=== PATIENT | male | born 1955 | race Caucasian/White ===

== ENCOUNTER 2019-09-03 14:04 | Inpatient (IN) ==
[2019-09-03] MEDS ORDERED: LASIX IV ONE (15:20)
--- NOTE | 2019-09-03 15:37 | EKG Report ---
Test Performed on : 09/03/2019 3:23:42 PM Test Reason : CHF/ SOB Blood Pressure : / mmHG Vent. Rate : 083 BPM Atrial Rate : 083 BPM P-R Int : 162 ms QRS Dur : 172 ms QT Int : 428 ms P-R-T Axes : 009 233 067 degrees QTc Int : 502 ms Normal sinus rhythm. Right bundle branch block Abnormal ECG When compared with ECG of 11-FEB-2018 07:01, Nonspecific T wave abnormality no longer evident in Inferior leads T wave inversion less evident in Anterolateral leads Confirmed by Javan DOCKERY, Froilan ([id number]) on 09/03/2019 5:42:32 PM
[2019-09-03 17:17] LABS: CK INDEX 8.9 (0.0-2.5); CK-MB 19.9 ng/mL (0.0-5.0)
[2019-09-03] MEDS: LOVENOX SUBQ SCH (18:54)
[2019-09-03] MEDS: LIPITOR PO SCH (20:03)
[2019-09-03] MEDS: COREG PO SCH (20:03)
[2019-09-03] MEDS: ENTRESTO 49 MG-51 MG TABLET PO SCH (20:03)
[2019-09-03] MEDS: LEVEMIR SUBQ SCH (20:09)
[2019-09-03] MEDS: HUMALOG SUBQ SCH (21:27)
--- NOTE | 2019-09-03 21:50 | CARDIOLOGY CONSULTATION ---
DATE: 09/03/2019 CHIEF COMPLAINT: On presentation, shortness of breath. HISTORY OF PRESENT ILLNESS: Mr. Arroyo is a 63-year-old white male with history of coronary disease, who presented for evaluation of shortness of breath to his primary care physician's office. He reports that this has been going on for 3-4 days, along with lower extremity edema. He has been compliant with his medications. He has had some issues with food-related abdominal burning and he found that the only thing that he could really tolerate was Molly sausages and crackers. He has noted the swelling and fluid gain in that time period. He has had no chest pain. He last had a PCI in 2018. At that time he had chest pain associated with it. Again, he reports compliance with medications. PAST MEDICAL HISTORY: 1. Significant for coronary artery disease, with coronary bypass grafting. His last catheterization was in 01/2018. At that time he had an occluded left main. LAD filled via LILI with diffuse irregularities. There was 95% in-stent stenosis at the lesion of the anastomosis of a vein graft to the diagonal. Circumflex had moderate-size mild disease. The obtuse marginal filled via vein graft. Right coronary was occluded with stenting noted. Saphenous vein graft to the marginal had a 95% lesion that was stented. Saphenous vein graft to the diagonal had a 95% diffuse in-stent lesion that was a stented. LILI to the LAD was patent. 2. Congestive heart failure. His most recent ejection fraction was in 2016 by echocardiogram, demonstrating EF of 40% to 45%. 3. Hypertension. 4. Hyperlipidemia. 5. Diabetes. 6. Peripheral neuropathy. 7. Reflux disease. 8. Sleep apnea. SOCIAL HISTORY: He is . is present in the room. He does not smoke. FAMILY HISTORY: Significant for hypertension. REVIEW OF SYSTEMS: A 10-system review of systems is negative except for those mentioned in HPI. PHYSICAL EXAMINATION: Afebrile. Heart rate 81, blood pressure 126/68. He weighs 248 pounds. Generally he is in no acute distress.HEENT: Oropharynx is moist. Normal dentition. Eye examination: [place] conjunctivae. White sclerae. Neck examination shows no obvious thyromegaly or thyroid tenderness. Cardiovascular: He is in a regular rate and rhythm. He has no murmurs. He has no S3. He has trace to 1+ bilateral lower extremity edema. His chest exam is clear bilaterally. He has no increased work of breathing. His abdomen is soft, nontender, nondistended. He has no obvious organomegaly. Skin exam is warm and dry throughout, without any rashes. Neurologically, he is moving all extremities well. He has no lateralizing deficits. DIAGNOSTIC DATA: His EKG demonstrates sinus rhythm. He has a right bundle branch block present. His chest x-ray suggests cardiomegaly; pacemaker identified. LABORATORY DATA: White count 9.4, hematocrit 45, platelet count 297,000. Sodium 141, potassium 4.6, BUN 29, creatinine is 1.2. His proBNP is 2563. His troponin 0.218. CK is 223. ASSESSMENT: Mr. Arroyo is a 63-year-old gentleman who presents with shortness of breath and symptoms suggestive of heart failure, with recent dietary sodium overload. PLAN: At this point we will continue with diuresis. We will place him on Lasix 40 mg IV daily. He received 1 dose here today, with good result. We will continue him on his aspirin, statin, carvedilol, Entresto and Imdur. If testing is in agreement with his likely heart failure exacerbation with mild troponin elevation resultant to that, we will likely proceed with perfusion imaging on Sunday. cc: MD Zaheer Lara MD
--- NOTE | 2019-09-03 22:10 | HISTORY AND PHYSICAL ---
CHIEF COMPLAINT: Shortness of breath and leg swelling. HISTORY OF PRESENT ILLNESS: Mr. Arroyo is a 63-year-old gentleman, complaining of bilateral leg swelling and some shortness of breath going on for 2 days. The patient was sick with sinus infection a few days ago. I started him on doxycycline. The patient was doing better, but again he got sicker. Complaining of bilateral leg swelling. The patient gained some weight, increasing shortness of breath. The patient was getting dizzy. At times, he described dizziness as a vertigo. The patient came for evaluation. The patient did have bibasilar few rales. The patient does have significant cardiac history including ischemic cardiomyopathy, multiple TX, CABG requiring stent placement after that. The patient has an implantable defibrillator. The patient is poorly compliant to treatment, though lately he was trying better. I did some blood work. His proBNP was elevated. Troponin was also minimally elevated. Discussed this result with the patient and . I offered them either to go to [place] to his manager willow versus admit him to [facility] for observation and further treatment. They elected to stay at [facility], and I decided to admit him to [facility]. The patient was feeling weak, getting short of breath with minimal exertion. He denied any orthopnea or PND. No typical chest pain or palpitation. No high-grade fever or chills. Mild cough, no expectoration. The patient does have uncontrolled diabetes, but lately blood sugar was doing better. No dysuria or hematuria. At times, polyuria, polydipsia. No runny nose, stuffy nose, sinus drainage. Dull headache. Denied abdominal pain. No diarrhea, or blood or mucus in the stool. The patient does have mild urinary hesitancy. Unquantified weight gain. No major depression. The patient does have sleep apnea. He was using his CPAP regularly. ALLERGIES: Narcotic analgesics. MEDICATIONS: His current medications include Lipitor, aspirin, Coreg, Plavix, Lasix 40 mg daily, Levemir 50 units b.i.d. The patient claimed he was taking NovoLog 50 units b.i.d., which I doubt. He was supposed to take 30 units 3 times a day. Aldactone, Entresto. PAST MEDICAL HISTORY: Significant for coronary artery disease, TX, the patient had CABG done and stent placement multiple times, ischemic cardiomyopathy, the patient had defibrillator placed, gastritis and reflux disease, history suggestive of TIA, diabetes mellitus, situational depression, the patient was on Cymbalta but not taking it lately, gastritis and reflux disease, morbid obesity, sleep apnea, moderate mitral regurgitation, peripheral neuropathy, arthritis. PERSONAL HISTORY: , lives with the . Quit smoking a few years ago. Denied alcohol or substance abuse. FAMILY HISTORY: Significant for hypertension, coronary artery disease, lung cancer. REVIEW OF SYSTEMS: As per HPI. PHYSICAL EXAMINATION: GENERAL: Middle-aged white gentleman lying in the bed, in no acute distress. VITAL SIGNS: Blood pressure 129/59, pulse 84, respirations 16, temperature 98.2 degrees, O2 saturation was 96%. SKIN: Normal turgor. No rash or petechiae. HEENT: Head atraumatic, normocephalic. [place] conjunctivae. Anicteric sclerae. Extraocular muscle movement normal. Fundus cannot be penetrated. Good oral hygiene. No tonsillopharyngeal congestion or exudate. Ears and nose benign. NECK: Supple. No JVD, thyromegaly or lymphadenopathy. CHEST: Bibasilar crepitation. Bilateral few rales. No significant wheezing. No movement of accessory muscles of respiration. CARDIOVASCULAR: S1 and S2 heard; 2/6 systolic murmur at the apex. No gallop or thrill. ABDOMEN: Soft, globular. Bowel sounds present. No organomegaly or mass. EXTREMITIES: No cyanosis or clubbing. Pitting edema 1 to 2+. No acute DVT. CENTRAL NERVOUS SYSTEM: Alert, awake, answering questions fairly well. LABORATORY DATA: The patient's laboratory data done as an outpatient revealed hemoglobin 14.3, hematocrit 45.8, WBC count 9.4, platelet count 297,000. ProBNP was 2563. His cardiac isoenzymes. Initial troponin was 0.193. BUN 29, creatinine 1.2. DIAGNOSTIC DATA: Chest x-ray result also reviewed. I reviewed his labs and chest x-ray results with the patient and . The patient was in congestive heart failure. I decided to admit the patient for further care. ASSESSMENT: 1. Congestive heart failure. 2. Patient ruled in for myocardial infarction, which could be due to uncompensated heart failure. 3. The patient does have uncontrolled diabetes mellitus. 4. Hypertension. 5. Hyperlipidemia. 6. Vertigo. 7. Ischemic cardiomyopathy. 8. Mitral regurgitation. PLAN: Admit the patient. Cardiology consult. Diuresis echocardiogram. Overall plan discussed at length with the patient and his . They are in agreement. cc: Zaheer Leigh MD
[2019-09-04 03:12] LABS: BASO# 0.06 X1000 (0.0-0.2); BASO% 0.9 % (0.0-0.8); EOS# 0.11 X1000 (0.0-0.7); EOS% 1.6 % (0.0-10.0); HEMATOCRIT 40.9 % (42.0-52.0); HEMOGLOBIN 12.8 g/dL (14.0-18.0); IMM GRAN# 0.03 X1000 (0.0-0.04); IMM GRAN% 0.4 % (0.0-0.5); LYMPH# 1.26 X1000 (1.2-3.4); LYMPH% 18.5 % (20.5-51.1); MCH 25.5 PG (27-31); MCHC 31.3 g/dL (33-37); MCV 81.6 FL (81-99); MONO# 0.73 X1000 (0.11-0.59); MONO% 10.7 % (1.7-9.3); NEUT# 4.61 X1000 (1.4-6.5); NEUT% 67.9 % (42.2-75.2); PLT 240 X1000 (130-400); RBC 5.01 XMIL (4.7-6.1); RDW 14.5 % (11.5-14.5)
[2019-09-04 03:45] LABS: ALB/GLOB RATIO 1.9; ALBUMIN 3.8 g/dL (3.5-5.0); CALCIUM 9.3 mg/dL (8.8-10.2); CREATININE 1.3 mg/dL (0.7-1.2); MAGNESIUM 2.2 mg/dL (1.5-2.7); POTASSIUM 4.4 mmol/L (3.5-5.1); TOTAL BILIRUBIN 0.58 mg/dL (0.20-1.00); TOTAL PROTEIN 5.8 g/dL (6.3-8.3)
[2019-09-04 06:01] LABS: HEMOGLOBIN A1C 8.2 % (4.8-6.0)
[2019-09-04] MEDS: HUMALOG SUBQ SCH ×4 (06:11→21:19)
[2019-09-04] MEDS: LOVENOX SUBQ SCH ×2 (06:11→17:06)
[2019-09-04] MEDS ORDERED: SODIUM CHLORIDE 0.9% INJ SCH (07:15)
--- NOTE | 2019-09-04 07:15 | EKG Report ---
Test Performed on : 09/04/2019 06:41:26 AM Test Reason : CHF/SOB Blood Pressure : / mmHG Vent. Rate : 082 BPM Atrial Rate : 082 BPM P-R Int : 162 ms QRS Dur : 166 ms QT Int : 416 ms P-R-T Axes : 016 269 170 degrees QTc Int : 486 ms Normal sinus rhythm. Right bundle branch block T wave abnormality, consider inferolateral ischemia Abnormal ECG When compared with ECG of 03-SEP-2019 15:23, T wave inversion now evident in Inferior leads T wave inversion more evident in Anterolateral leads Confirmed by Javan DOCKERY, Froilan ([id number]) on 09/04/2019 8:20:35 AM
--- NOTE | 2019-09-04 08:29 | Diag Imaging Result Doc PS360 ---
EXAM: CT HEAD W/O CONTRAST INDICATION: headache TECHNIQUE: This exam was performed using automated exposure control, adjustment of mA or kV according to patient size, and/or use of iterative reconstruction technique. COMPARISON: None. FINDINGS: There is no definite acute infarct given the limited sensitivity of CT versus MRI. There is no discrete intracranial mass, mass effect, or intracranial hemorrhage. The surrounding soft tissues and bony structures are essentially unremarkable. IMPRESSION: No evidence of acute intracranial pathology. Electronically signed by Tavon Slaughter 09/04/2019 8:27 AM
--- NOTE | 2019-09-04 08:41 | Diag Imaging Result Doc PS360 ---
EXAM: CHEST-2 VIEWS HISTORY: CHF/ SOB TECHNIQUE: Two views COMPARISON: 09/03/2019 FINDINGS: The lungs are well expanded. The heart remains enlarged. There are sternal wires and a left pacemaker. No pleural effusions. Mild vascular distention. IMPRESSION: Cardiomegaly with mild pulmonary edema Electronically signed by Colton Church 09/04/2019 8:38 AM
[2019-09-04] MEDS: KLOR-CON PO SCH (09:05)
[2019-09-04] MEDS: COREG PO SCH ×2 (09:05→21:19)
[2019-09-04] MEDS: ALDACTONE PO SCH (09:06)
[2019-09-04] MEDS: ASPIRIN PO SCH (09:06)
[2019-09-04] MEDS: LASIX IV SCH (09:06)
[2019-09-04] MEDS: ANTIVERT PO SCH ×3 (09:06→17:06)
[2019-09-04] MEDS: ENTRESTO 49 MG-51 MG TABLET PO SCH ×2 (09:06→21:19)
[2019-09-04] MEDS: IMDUR PO SCH (09:06)
[2019-09-04] MEDS: PLAVIX PO SCH (09:08)
[2019-09-04] MEDS: LEVEMIR SUBQ SCH ×2 (09:11→21:19)
--- NOTE | 2019-09-04 09:14 | PROGRESS NOTE ---
DATE: 09/04/2019 SUBJECTIVE: Mr. Arroyo is doing fair. No typical chest pains or palpitations. Leg swelling is less. The patient is diuresing well with IV Lasix. No chest pain. Complaining of vertigo, more benign positional, dull headache. No typical chest pain. No high-grade fever or chills OBJECTIVE: Vital Signs: Blood pressure was low normal. Neck: Supple. No JVD. Lungs: Bibasilar crepitations. Rales are less. CVS: S1 and S2 heard, 2/6 systolic murmur at the apex. Abdomen: Soft, globular. Bowel sounds present. PROPAGATOR LABORER: Alert, awake, able to move all 4 limbs. Extremities: Leg swelling improved. ASSESSMENT AND DISCUSSION: 1. Patient admitted with uncompensated systolic heart failure. The patient does have a history of ischemic cardiomyopathy. Appreciate Dr. James Mcgrath's help managing this patient. The patient is scheduled to have an echocardiogram today. 2. Coronary artery disease. The patient had elevated troponin most likely due to uncompensated heart failure. Troponin done today 0.296. 3. Uncontrolled diabetes mellitus. 4. Benign positional vertigo. I am going to get CT scan of the head to make sure no other intracranial pathology or severe sinus infection. 5. Diabetes mellitus. Hemoglobin A1c was 8.2. Advised patient not to take Humalog 50 units twice a day. Currently, he is on moderate dose sliding scale insulin along with 50 units Levemir twice a day. 6. Hyperlipidemia on Lipitor. Discussed fall precautions. 7. Sleep apnea on CPAP. LABORATORY DATA: Done today. WBC count 6.8, hemoglobin 12.8, hematocrit 40.9, platelet count 240,000. BUN 29, creatinine 1.3. Accu-Chek results reviewed. ProBNP was 2604. PLAN: Overall plan discussed at length with the patient. cc: Zaheer Leigh MD
[2019-09-04] MEDS: PROTONIX IV SCH (09:15)
[2019-09-04] MEDS ORDERED: INSULIN PEN NEEDLES ONE (10:41)
--- NOTE | 2019-09-04 16:17 | ECHO REPORT ---
ORDER DATE: 09/04/2019 INTERPRETING PHYSICIAN: Dr. López Harris ECHOCARDIOGRAPHIC MEASUREMENTS: 1. Interventricular septum: 1.3 cm. 2. Left ventricular posterior wall: 1.1 cm. 3. Diastolic diameter: 6.0 cm. 4. Left atrium: 4.4 cm. 5. Aorta: 3.2 cm. SUMMARY OF THE 2-DIMENSIONAL IMAGIN. Technically suboptimal study. 2. Poor acoustic window. 3. Aortic valve leaflets were trileaflet. 4. Pulmonic valve was normal. 5. Mitral valve was normal. 6. Tricuspid valve was normal. 7. Optison was used to assess left ventricular systolic function. 8. Left ventricle is dilated with severely reduced systolic function. 9. Estimated ejection fraction of 35%. 10. Pacing leads were noted in the right chamber. 11. There is mild mitral regurgitation. 12. Mild tricuspid regurgitation. 13. Peak velocity across the tricuspid valve was 2.2 meters per second. 14. There is no aortic stenosis or regurgitation. 15. Anterior echo-free space suggestive of pericardial fat pad was noted. 16. There is no pericardial effusion or obvious intracardiac mass or thrombus seen. cc: MD James Beebe MD Bharat K. Vakharia, MD
[2019-09-04] MEDS: LIPITOR PO SCH (21:19)
--- NOTE | 2019-09-04 23:08 | CARDIOLOGY PROGRESS NOTE ---
DATE: 09/04/2019 SUBJECTIVE: Mr. Arroyo reports his breathing is improved. He is not having any orthopnea and his lower extremity edema has improved. PHYSICAL EXAMINATION: He is afebrile. His heart rate is 75, blood pressure 112/58. His I's and O's during this hospitalization have been documented negative around 1500 mL.General: He is in no acute distress. Cardiovascular: He sounds to be in a regular rate and rhythm. He has no obvious murmurs. He has no S3. He has trace bilateral lower extremity edema, and warm and well- perfused extremities. Chest: Sounds relatively clear. He has no increased work of breathing. His JVP appears to be less than 8 cm. PERTINENT DATA: His white count is 6.8, hematocrit is 40, platelet count is 240,000. Sodium 139, potassium is 4.4, BUN 29, creatinine is 1.3. His proBNP is 2604. His initial troponin was 0.218, subsequent 0.194, and final was 0.296. Echocardiogram today suggested an ejection fraction of 35%. Severe dilatation. Device leads noted. Mild MR, mild TR. ASSESSMENT: Mr. Arroyo is a 63-year-old gentleman who presented with what seems like a congestive heart failure exacerbation secondary to dietary sodium indiscretion. PLAN: We will proceed with perfusion imaging in the morning. We will recheck laboratories. If perfusion imaging is unremarkable, then he can likely be discharged tomorrow. cc: MD Zaheer Lara MD
[2019-09-05] MEDS: LOVENOX SUBQ SCH (05:55)
[2019-09-05] MEDS: HUMALOG SUBQ SCH ×3 (06:01→18:07)
[2019-09-05] MEDS ORDERED: ATIVAN IV ONE (09:16)
[2019-09-05] MEDS ORDERED: VERSED IV ONE (09:17)
[2019-09-05] MEDS ORDERED: LEXISCAN ONE (10:20)
--- NOTE | 2019-09-05 11:23 | PROGRESS NOTE ---
DATE: 09/05/2019 SUBJECTIVE: Ms. Arroyo is doing better. No typical chest pain. Shortness of breath is improving. No nausea or vomiting. The patient is ambulating better. No diarrhea, blood or mucus in the stool. Vertigo is better. CT scan of the head results reviewed and discussed with the patient. OBJECTIVE: Vital Signs: His vital signs noted. Neck: Neck is supple. No JVD. Lungs: A few basilar crepitations. CVS: S1 and S2 heard. Abdomen: Soft, globular. Bowel sounds present. Extremities: Leg swelling improved. VMWARE ARCHITECT: Alert, awake. Able to move all 4 limbs. CONSIDERATION: Uncompensated. 1. Both systolic and diastolic heart failure. 2. Uncontrolled diabetes mellitus. 3. Hypertension. 4. Vertigo. The patient is going to have Lexiscan today if clinical condition permits, and depending on Lexiscan result, will plan discharging patient home today. I appreciate Dr. Mcgrath's help managing the patient. cc: Zaheer Leigh MD
[2019-09-05] MEDS ORDERED: TYLENOL PO ONE (12:51)
[2019-09-05] MEDS: ASPIRIN PO SCH (13:02)
[2019-09-05] MEDS: COREG PO SCH (13:02)
[2019-09-05] MEDS: ANTIVERT PO SCH ×3 (13:03→18:07)
[2019-09-05] MEDS: KLOR-CON PO SCH (13:03)
[2019-09-05] MEDS: ALDACTONE PO SCH (13:03)
[2019-09-05] MEDS: PROTONIX IV SCH (13:04)
[2019-09-05] MEDS: PLAVIX PO SCH (13:07)
[2019-09-05] MEDS: ENTRESTO 49 MG-51 MG TABLET PO SCH (13:08)
[2019-09-05] MEDS: IMDUR PO SCH (13:08)
[2019-09-05] MEDS: LEVEMIR SUBQ SCH (13:15)
[2019-09-05] MEDS: LASIX IV SCH (13:15)
--- NOTE | 2019-09-05 13:57 | Diag Imaging Result Document ---
PROCEDURE NAME: MYOCARDIAL PERF SCAN, STR/REST - 09/05/2019 INDICATIONS: Congestive heart failure, history of coronary artery disease. PROCEDURE PERFORMED: Lexiscan stress. One-day stress-rest myocardial perfusion imaging (rest dose of 14.9 mCi of technetium, stress dose of 44.8 mCi of technetium). LEXISCAN STRESS RESULTS: 1. Baseline EKG shows sinus rhythm with a right bundle-branch block. PVC is identified. 2. Lexiscan stress did not demonstrate any clear evidence of ischemic related EKG changes or significant arrhythmias. Occasional PVCs were identified. PERFUSION IMAGING RESULTS: 1. No evidence of abnormal extracardiac uptake. 2. TID ratio is 1.03. 3. Perfusion imaging demonstrates a large size severe intensity defect. This defect is quite extensive and involves the entirety of the anterior wall, large portions of the anterior lateral wall as well as extensive portions of the basal and mid inferior wall. There does appear to be intact perfusion in the mid and distal anterior septum, as well as the more distal inferior wall. These defects are largely fixed with only minimal sherry-infarct ischemia. The sum stress score is 28, and sum rest score is 22. 4. Reduced ejection fraction calculated at 37%. There is a dilated left ventricle with an end- diastolic dimension of 246, end-systolic volume of 155. Severe global hypokinesis. cc: James Mcgrath MD
[2019-09-05] MEDS ORDERED: MOBIC PO ONE (14:30)
[2019-09-05 16:06] VITALS: BP 146/84
--- NOTE | 2019-09-06 08:57 | CARDIOLOGY PROGRESS NOTE ---
DATE: 09/05/2019 SUBJECTIVE: Mr. Arroyo reports he is doing well. He underwent a stress testing today. OBJECTIVE: Vital Signs: Afebrile. Heart rate 96, blood pressure 146/84. I's and O's have been negative around 1 L during the course of the hospitalization. General: He is in no acute distress. Cardiovascular: He sounds to be in a regular rate and rhythm. He has no murmurs. He has no S3. He has no lower extremity edema. Chest: Exam sounds clear bilaterally. He has no increased work of breathing. Abdomen: Soft, nontender. PERTINENT DATA: He has no new chemistry data today. His nuclear scan shows large predominantly fixed defects in multiple territories involving the mid and distal anterior septum, as well as the inferior wall. There is minimal sherry-infarct ischemia. Sum stress score 28; sum rest score 22; EF 37% with a dilated LV. ASSESSMENT: Mr. Arroyo is a 63-year-old gentleman, who came in with a heart failure exacerbation likely due to sodium indiscretion. PLAN: Nuclear scanning does not demonstrate any significant reversibility. Likely his symptoms were secondary to sodium indiscretion. From my standpoint, he can be discharged home to follow up with Dr. Agudelo. cc: MD Zaheer Lara MD
--- NOTE | 2019-09-06 23:06 | DISCHARGE SUMMARY ---
ADMISSION DATE: 09/03/2019 DISCHARGE DATE: 09/05/2019 FINAL DISCHARGE DIAGNOSES: 1. Uncompensated systolic heart failure. 2. Elevated troponin. 3. Diabetes mellitus. 4. Low back pain musculoskeletal. 5. Anxiety and panic attack. 6. Hyperlipidemia. 7. Gastritis and reflux disease. 8. Ischemic cardiomyopathy. 9. Vertigo. BRIEF HISTORY: Mr. Arroyo is a 63-year-old gentleman admitted with shortness of breath. I evaluated the patient in the office, the patient had an elevated proBNP, weight gain, troponin was elevated, I decided to admit the patient for further care. Lately the patient was using a large amount of sodium, noncompliant to diet. HOSPITAL COURSE: Cardiology consult was obtained with Dr. Mcgrath. We did echocardiogram, which did reveal some an ejection fraction of 35%, severe dilatation. The patient underwent stress test, results reviewed and discussed with the auto servicer. The patient did have panic attack after the stress test, and significant back pain musculoskeletal. He responded fairly satisfactory to Mobic. Dr. Mcgrath evaluated the patient, discussed the plan with him. The patient is eager to go home, and according to the auto servicer the patient can go home. Overall discharge plan discussed with the patient. Clinically the patient is doing much better. PHYSICAL EXAMINATION: Vital Signs: Vital signs noted. Neck: Supple. No JVD. Lungs: Bibasilar crepitations. Heart: S1 and S2 heard. Abdomen: Soft, globular. Bowel sounds present. PIPE CLEANING MACHINE OPERATOR: Alert, awake, able to move all 4 limbs. Leg swelling improved. PLAN: I gave him Mobic. Stress test result discussed with the patient and . Overall discharge condition satisfactory. Advised bello patient to be on proper cardiac diet. Follow up with me in a week. Advised to take Lasix 40 mg twice a day. Proper diet. Started him on Protonix 40 mg daily. Weight reduction. Gradually increase exercise. In case of more distress call us back or go to emergency room. I did offer the patient to stay 1 more night but the patient claims he feels much better in his own bed because of back pain and the patient is stable to be discharged. LABORATORY DATA: Revealed hemoglobin 12.8, hematocrit 40.9 WBC count 6.8, platelet count 240,000. Electrolyte is fairly benign. Blood sugar is uncontrolled at times. The patient was not taking his NovoLog properly, instead of taking 50 units twice a day I advised the patient to take 30 units 3 times a day. Continue Levemir oral hypoglycemic agent. In case of more distress call us back or go to emergency room. Overall discharge condition is satisfactory. cc: Zaheer Leigh MD
== END 2019-09-05 18:44 | disposition home or self-care (01) | DRG 292 ==
LOC: DIRADM 14:04 → 2N 14:51
PROVIDERS: ADMIT Internal Medicine; ATTEND Internal Medicine

== ENCOUNTER 2019-09-14 11:22 | Inpatient (IN) ==
[2019-09-14 12:34] LABS: BASO# 0.05 X1000 (0.0-0.2); BASO% 0.5 % (0.0-0.8); EOS# 0.08 X1000 (0.0-0.7); EOS% 0.7 % (0.0-10.0); HEMATOCRIT 44.9 % (42.0-52.0); IMM GRAN# 0.04 X1000 (0.0-0.04); IMM GRAN% 0.4 % (0.0-0.5); LYMPH# 0.83 X1000 (1.2-3.4); LYMPH% 7.7 % (20.5-51.1); MCH 25.1 PG (27-31); MCHC 31.2 g/dL (33-37); MCV 80.6 FL (81-99); MONO# 0.54 X1000 (0.11-0.59); MPV 9.7 FL (7.4-10.4); NEUT# 9.19 X1000 (1.4-6.5); NEUT% 85.7 % (42.2-75.2); PLT 329 X1000 (130-400); RBC 5.57 XMIL (4.7-6.1); RDW 14.5 % (11.5-14.5); WBC 10.73 X1000 (4.8-10.8)
[2019-09-14 12:51] LABS: AGAP 16; ALB/GLOB RATIO 1.9; ALBUMIN 4.7 g/dL (3.5-5.0); ALKALINE PHOSPHATASE 84 U/L (32-122); BUN 33 mg/dL (8-22); CALCIUM 10.3 mg/dL (8.8-10.2); CHLORIDE 94 mmol/L (98-107); CK PROFILE 39 U/L (24-204); COSMO 287; CREATININE 1.2 mg/dL (0.7-1.2); ESTIMATED GFR > 60; GLUCOSE 212 mg/dL (70-104); GOT 12 U/L (10-34); GPT 21 U/L (10-44); POTASSIUM 4.8 mmol/L (3.5-5.1); SODIUM 137 mmol/L (136-145); TCO2 27 mmol/L (25-35); TOTAL BILIRUBIN 0.52 mg/dL (0.20-1.00); TOTAL PROTEIN 7.2 g/dL (6.3-8.3)
[2019-09-14] MEDS ORDERED: NS 1,000 ML IV ONE ×2 (13:01→15:37)
--- NOTE | 2019-09-14 13:53 | Diag Imaging Result Doc PS360 ---
EXAM: CHEST-2 VIEWS INDICATION: syncope TECHNIQUE: 2 views COMPARISON: 09/04/2019 FINDINGS: The lungs are grossly clear. There is no discrete pleural fluid collection or pneumothorax. There is stable cardiomegaly and a stable pacemaker/defibrillator. Central vasculature is mildly prominent similar to previous study suggesting mild pulmonary venous congestion, probably chronic congestion. IMPRESSION: Cardiomegaly and suggestion of mild pulmonary venous congestion. Electronically signed by Tavon Slaughter 09/14/2019 1:51 PM
[2019-09-14] MEDS ORDERED: TYLENOL PO PRN (15:37)
[2019-09-14] MEDS ORDERED: LYRICA PO SCH ×2 (15:45→21:00)
[2019-09-14] MEDS ORDERED: ALDACTONE PO ONE (15:45)
[2019-09-14] MEDS ORDERED: ENTRESTO 49 MG-51 MG TABLET PO ONE (15:45)
[2019-09-14] MEDS ORDERED: COREG PO ONE (15:50)
--- NOTE | 2019-09-14 15:56 | PROVIDER DOCUMENTATION ---
This chart was entered by Pina Rosenberg Scribe, acting as scribe for Akbar Gross DO. HPI-Syncope/Dizziness - General Chief Complaint: Dizziness Stated Complaint: VERTIGO Time Seen by Provider: 09/14/19 11:37 Source: patient, family (Son) Allergies/Adverse Reactions: Patient Allergies Allergy/AdvReac Type Severity Reaction Status Date / Time narcotic Allergy Unknown Uncoded 09/14/19 12:05 Home Medications: Home Medication List Medication Instructions Recorded Confirmed Last Taken Type ATORVAstatin [Lipitor] 40 mg PO QHS 02/10/18 09/03/19 09/02/19 History Aspirin 81 mg PO DAILY 02/10/18 09/03/19 09/03/19 History Carvedilol [Coreg] 12.5 mg PO BID 02/10/18 09/03/19 09/03/19 History Dapagliflozin Propanediol [Farxiga] 1 tab PO DAILY 02/10/18 09/03/19 09/03/19 History Duloxetine [Cymbalta] 60 mg PO DAILY 02/10/18 09/03/19 09/03/19 History Insulin Detemir [Levemir] 50 unit SQ BID 02/10/18 09/03/19 09/03/19 History Isosorbide Mononitrate E.r. [Imdur] 60 mg PO DAILY 02/10/18 09/03/19 09/03/19 History Metformin [Glucophage] 1,000 mg PO BID CC 02/10/18 09/03/19 09/03/19 History Potassium Chloride 10 meq PO DAILY 02/10/18 09/03/19 09/03/19 History Sacubitril/Valsartan [Entresto 49 1 tab PO BID 02/10/18 09/03/19 09/03/19 History mg-51 mg Tablet] Spironolactone [Aldactone] 25 mg PO DAILY 02/10/18 09/03/19 09/03/19 History Clopidogrel Bisulfate [Clopidogrel] 75 mg PO DAILY 09/03/19 09/03/19 09/03/19 History Pantoprazole Sodium 40 mg PO DAILY 09/03/19 09/03/19 09/03/19 History Pregabalin 50 mg PO BID 09/03/19 09/03/19 09/03/19 History Furosemide [Lasix] 40 mg PO BID #0 09/05/19 09/03/19 09/03/19 Rx Insulin Aspart [Novolog] 30 unit SQ TID #0 09/05/19 09/03/19 09/03/19 Rx Meclizine [Antivert] 12.5 mg PO TID PRN #15 tab 09/05/19 Unknown Rx - History of Present Illness-Syncope/Dizzy Nature of Presenting Problem: 63 y/o male presents to the ED with complaint of syncope times two this am. 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 He states he thinks this episode lasted only a few seconds with one other possible episode followed by dizziness which worsens with sudden movement. Son states the patient was admitted to the hospital one week ago with normal head CT and cardiac work up Sunday. The patient states he did not feel well yesterday but dizziness began this am after syncopal episode. Prior Episodes: reports: recent history Onset/Duration: reports: this morning Timing: reports: still present Context: reports: lost consciousness Loss of Consciousness: brief (seconds) Location of injury. (If syncope resulted in an injury.): reports: none Current Symptoms: reports: dizzy. denies: fever, short of breath, nausea Recently Seen Here or By Another Healthcare Provider: Yes - Dizziness Dizziness Related Current/Associated Symptoms: reports: syncope. denies: nausea/vomiting Any recent trauma/injury?: reports: none Modifying Factors: worse with: changing position Review of Systems - Adult - REVIEW OF SYSTEMS - ADULT Constitutional: denies: chills, fever, weight loss Eyes: reports: no symptoms reported Ears, Nose, Mouth & Throat: reports: no symptoms reported Cardiovascular: reports: no symptoms reported Respiratory: denies: hemoptysis, shortness of breath, wheezing Gastrointestinal: denies: diarrhea, nausea, vomiting Genitourinary: reports: no symptoms reported Musculoskeletal: reports: no symptoms reported Integumentary: reports: no symptoms reported Neurological: reports: dizziness/vertigo, syncope. denies: slurred speech Psychiatric: reports: no symptoms reported Endocrine: reports: no symptoms reported Hematologic/Lymphatic: reports: no symptoms reported Allergic/Immunologic: reports: no symptoms reported All Other Systems: Reviewed and Negative Past History - Adult - PAST MEDICAL HISTORY-ADULT Review of Records: reports: Old Records Reviewed, Nursing Assessment Review, Medications Reviewed Major Childhood Illnesses: reports: denies history Cardiovascular: reports: A-Fib, CAD, CHF, HTN, hyperlipidemia, [place], pacemaker Respiratory: reports: bronchitis Gastrointestinal: reports: denies history Obstetrical/Gynecological: reports: denies history Genitourinary: reports: kidney stones Musculoskeletal: reports: denies history Neurological: reports: denies history Psychiatric: reports: anxiety Endocrine/Immune: reports: Diabetes Other Conditions: reports: denies history - PRIOR SURGERIES/PROCEDURES Surgical/Procedure History: reports: CABG, cardiac stent, pacemaker (/ defribillator), orthopedic (extremity) (tumors removed) - IMMUNIZATION STATUS Childhood Immunizations: See Nurse Assessment Flu Vaccine: See Nurse Assessment - FAMILY HISTORY Family History: reviewed, not pertinent - SOCIAL HISTORY Smoking: non-smoker Physical Exam-General - PHYSICAL EXAM-ADULT Initial Vital Signs Reviewed: Yes - CONSTITUTIONAL General Appearance: alert, obese - EYES Eyes: PERRL/EOMI - HEAD, EARS, NOSE, MOUTH & THROAT HENMT: normocephalic/atraumatic, normal ENT inspection - NECK Neck: supple. negative: carotid bruit - RESPIRATORY Respiratory: lungs clear, normal breath sounds. negative: rales, rhonchi, wheezing - CARDIOVASCULAR Cardiovascular: regular rate, rhythm, no edema, no gallop, no murmur - MUSCULOSKELETAL Extremity: normal inspection, no pedal edema - SKIN Integumentary: normal color, warm/dry. negative: diaphoresis, pallor - NEUROLOGIC Neurologic: grossly normal Progress - PLAN OF CARE/RESULTS Progress/Plan/Lab Results: Vital Signs - 8 hr 09/14/19 11:25 09/14/19 11:38 09/14/19 12:15 Temperature 97.4 F L Pulse Rate 84 85 82 Respiratory Rate 18 18 22 Blood Pressure 135/74 147/79 O2 Sat by Pulse Oximetry 97 97 09/14/19 12:30 09/14/19 12:32 09/14/19 12:45 Temperature Pulse Rate 79 79 80 Respiratory Rate 22 19 21 Blood Pressure 114/68 O2 Sat by Pulse Oximetry 96 96 97 09/14/19 13:00 09/14/19 13:02 09/14/19 13:15 Temperature Pulse Rate 82 82 79 Respiratory Rate 26 H 17 19 Blood Pressure 116/67 O2 Sat by Pulse Oximetry 94 L 96 97 09/14/19 13:30 09/14/19 13:32 09/14/19 13:45 Temperature Pulse Rate 81 82 87 Respiratory Rate 15 23 21 Blood Pressure 138/83 O2 Sat by Pulse Oximetry 96 96 96 09/14/19 14:00 09/14/19 14:02 09/14/19 14:15 Temperature Pulse Rate 81 84 84 Respiratory Rate 17 16 20 Blood Pressure 135/76 O2 Sat by Pulse Oximetry 97 96 96 09/14/19 14:30 09/14/19 14:32 09/14/19 14:45 Temperature Pulse Rate 94 H 89 85 Respiratory Rate 29 H 21 19 Blood Pressure 128/69 O2 Sat by Pulse Oximetry 96 95 96 09/14/19 15:00 09/14/19 15:02 09/14/19 15:15 Temperature Pulse Rate 81 84 84 Respiratory Rate 21 18 17 Blood Pressure 132/79 O2 Sat by Pulse Oximetry 95 94 L 95 09/14/19 15:30 09/14/19 15:32 Temperature Pulse Rate 82 82 Respiratory Rate 15 16 Blood Pressure 120/75 O2 Sat by Pulse Oximetry 94 L 95 Laboratory Results - last 24 hr 09/14/19 09/14/19 09/14/19 11:34 12:25 12:25 WBC RBC Hgb Hct MCV MCH MCHC RDW Std Deviation Plt Count MPV Immature Gran % (Auto) Neut % (Auto) Lymph % (Auto) Lake % (Auto) Eos % (Auto) Baso % (Auto) Immature Gran # (Auto) Neut # (Auto) Lymph # (Auto) Lake # (Auto) Eos # (Auto) Baso # (Auto) Sodium 137 Potassium 4.8 Chloride 94 L Carbon Dioxide 27 Anion Gap 16 BUN 33 H Creatinine 1.2 Estimated GFR/1.73 m2 > 60 BUN/Creatinine Ratio 28 Glucose 212 H POC Glucose 197 H D Calculated Osmolality 287 Calcium 10.3 H Total Bilirubin 0.52 AST 12 ALT 21 Alkaline Phosphatase 84 Creatine Kinase 39 Troponin T 0.488 H* Ism-J-Suhalqjuiic Pept Total Protein 7.2 Albumin 4.7 Globulin 2.5 Albumin/Globulin Ratio 1.9 09/14/19 09/14/19 09/14/19 12:25 12:25 14:44 WBC 10.73 RBC 5.57 Hgb 14.0 Hct 44.9 MCV 80.6 L MCH 25.1 L MCHC 31.2 L RDW Std Deviation 14.5 Plt Count 329 MPV 9.7 Immature Gran % (Auto) 0.4 Neut % (Auto) 85.7 H Lymph % (Auto) 7.7 L Lake % (Auto) 5.0 Eos % (Auto) 0.7 Baso % (Auto) 0.5 Immature Gran # (Auto) 0.04 Neut # (Auto) 9.19 H Lymph # (Auto) 0.83 L Lake # (Auto) 0.54 Eos # (Auto) 0.08 Baso # (Auto) 0.05 Sodium Potassium Chloride Carbon Dioxide Anion Gap BUN Creatinine Estimated GFR/1.73 m2 BUN/Creatinine Ratio Glucose POC Glucose Calculated Osmolality Calcium Total Bilirubin AST ALT Alkaline Phosphatase Creatine Kinase 38 Troponin T Zct-S-Dfcqupudnhz Pept 1558 H Total Protein Albumin Globulin Albumin/Globulin Ratio 09/14/19 14:44 WBC RBC Hgb Hct MCV MCH MCHC RDW Std Deviation Plt Count MPV Immature Gran % (Auto) Neut % (Auto) Lymph % (Auto) Lake % (Auto) Eos % (Auto) Baso % (Auto) Immature Gran # (Auto) Neut # (Auto) Lymph # (Auto) Lake # (Auto) Eos # (Auto) Baso # (Auto) Sodium Potassium Chloride Carbon Dioxide Anion Gap BUN Creatinine Estimated GFR/1.73 m2 BUN/Creatinine Ratio Glucose POC Glucose Calculated Osmolality Calcium Total Bilirubin AST ALT Alkaline Phosphatase Creatine Kinase Troponin T 0.451 H* Vvi-A-Jgjouhlpvla Pept Total Protein Albumin Globulin Albumin/Globulin Ratio Orders Category Date Time Status Admit - [facility] Routine AdmDCTranf 09/14/19 15:37 Active Admit - [facility] Routine AdmDCTranf 09/14/19 15:37 Active Activity - Bed Rest with BRP ORDERED Care 09/14/19 15:37 Active Vital Signs Order ARRIVAL TO ROOM Care 09/14/19 15:37 Active Heart Healthy Diet Diet 09/14/19 15:39 Active CHEST-2 VIEWS [RAD] Stat Exams 09/14/19 11:46 Completed CBC WITH ELECTRONIC DIFF [HEME] Stat Lab 09/14/19 12:25 Completed CK PROFILE [SP CHEM] Stat Lab 09/14/19 12:25 Completed CK PROFILE [SP CHEM] Stat Lab 09/14/19 14:44 Completed COMPREHENSIVE METABOLIC PANEL [CHEM] Stat Lab 09/14/19 12:25 Completed PRO B-NATRIURETIC PEPTIDE Stat Lab 09/14/19 12:25 Completed TROPONIN T Stat Lab 09/14/19 12:25 Completed TROPONIN T Stat Lab 09/14/19 14:44 Completed 0.9% Sodium Chloride Inj [Ns] 1,000 ml Med 09/14/19 13:01 Discontinued IV 999 mls/hr 0.9% Sodium Chloride Inj [Ns] 1,000 ml Med 09/14/19 15:37 Discontinued IV KVO mls/hr ATORVAstatin [Lipitor] Med 09/14/19 16:00 Ordered 40 mg PO NOW Acetaminophen [Tylenol] Med 09/14/19 15:37 Active 650 mg PO Q6H PRN PRN Aspirin Med 09/14/19 16:00 Ordered 81 mg PO NOW Carvedilol [Coreg] Med 09/14/19 15:50 Discontinued 12.5 mg PO NOW ONE Furosemide [Lasix] Med 09/14/19 16:00 Active 40 mg PO BID Insulin Detemir [Levemir] Med 09/14/19 16:00 Active 50 unit SUBQ BID Insulin Lispro [Humalog] Med 09/14/19 16:00 Active 30 units SUBQ TID Isosorbide Mononitrate E.r. [Imdur] Med 09/14/19 16:00 Active 60 mg PO DAILY Potassium Chloride E.r. [Klor-Con] Med 09/14/19 16:00 Active 10 meq PO DAILY Pregabalin [Lyrica] Med 09/14/19 15:45 Active 50 mg PO BID Sacubitril/Valsartan [Entresto 49 mg-51 mg Tablet] Med 09/14/19 15:45 Ordered 1 each PO NOW Spironolactone [Aldactone] Med 09/15/19 09:00 Active 25 mg PO DAILY Spironolactone [Aldactone] Med 09/14/19 15:45 Discontinued 25 mg PO NOW ONE Oxygen Device Routine Oth 09/14/19 15:39 Active EKG [EKG] Stat Ther 09/14/19 11:30 Ordered EKG [EKG] Stat Ther 09/14/19 13:45 Ordered Transfer/Admit Order [TRANSFER] Routine Transfer 09/14/19 15:54 Ordered Result Diagrams: 09/14/19 12:25 09/14/19 12:25 - EKG 1 Time of EKG reading by physician:: 11:50 EKG Read and Signed by:: Akbar Gross EKG Interpretation (*Must complete 3 of following elements*): Abnormal Rate: 83 Rhythm: NSR Lamy: normal Comments: right BBB - XRAY 1 XRAY Study: Chest (EXAM: CHEST-2 VIEWS INDICATION: syncope TECHNIQUE: 2 views COMPARISON: 09/04/2019 FINDINGS: The lungs are grossly clear. There is no discrete pleural fluid collection or pneumothorax. There is stable cardiomegaly and a stable pacemaker/defibrillator. Central vasculature is mildly prominent similar to previous study suggesting mild pulmonary venous congestion, probably chronic congestion. IMPRESSION: Cardiomegaly and sugge stion of mild pulmonary venous congestion. Electronically signed by Tavon Slaughter 09/14/2019 1:51 PM) - CONSULTS/PCP/HOSPITALIST Notification #1 *Consult/PCP/Hospitalist*: Dr. Hardin help desk consultant for Dr. Leigh Time Discussed: 15:34 Reason/Comments: Elevated troponin Consult Disposition: Admit Departure - Departure Date of Disposition Decision: 09/14/19 Time of Disposition Decision: 15:55 DIAGNOSIS: Syncope and collapse, Dizziness Disposition: ADMITTED INPATIENT 09 Certified Medical Emergency: Emergent Condition: Stable Referrals and Follow-Ups: Zaheer Leigh MD [Primary Care Provider] - - Critical Care Note This patient required my direct & personal management of CC.: No Attestation - Physician/ BILLY Attestation Patient care was provided by Advanced Practice Provider:: No The physician spent face to face time with patient:: Yes Advanced Practice Provider documentation review:: Supervising physician onsite and consulted in the evaluation and care of this patient. The physician did have a face to face encounter with the patient. This chart was documented by the indicated scribe, (Pina Rosenberg, Patti) and accurately reflects the services I performed and decisions made by , Akbar Gross DO, as attested by the provider's signature.
[2019-09-14] MEDS ORDERED: ASPIRIN PO SCH (16:00)
[2019-09-14] MEDS ORDERED: HUMALOG SUBQ SCH (16:00)
[2019-09-14] MEDS ORDERED: LEVEMIR SUBQ SCH ×2 (16:00→21:00)
[2019-09-14] MEDS ORDERED: LASIX PO SCH ×2 (16:00→21:00)
[2019-09-14] MEDS ORDERED: IMDUR PO SCH (16:00)
[2019-09-14] MEDS ORDERED: KLOR-CON PO SCH (16:00)
--- NOTE | 2019-09-14 17:43 | EKG Report ---
Test Performed on : 09/14/2019 11:50:44 AM Test Reason : DIZZINESS Blood Pressure : / mmHG Vent. Rate : 083 BPM Atrial Rate : 083 BPM P-R Int : 176 ms QRS Dur : 166 ms QT Int : 430 ms P-R-T Axes : 001 242 019 degrees QTc Int : 505 ms Normal sinus rhythm. Right bundle branch block Abnormal ECG When compared with ECG of 04-SEP-2019 06:41, T wave inversion no longer evident in Inferior leads T wave inversion no longer evident in Lateral leads Unconfirmed Result
[2019-09-14] MEDS ORDERED: CLARITIN PO SCH (18:15)
[2019-09-14] MEDS: HUMALOG SUBQ SCH (18:20)
--- NOTE | 2019-09-14 18:53 | HISTORY AND PHYSICAL ---
CHIEF COMPLAINT: Dizziness. HISTORY OF PRESENT ILLNESS: The patient is a 63-year-old white male followed by Dr. Leigh presents to the emergency room complaining of pronounced dizziness and possible episode where he briefly had loss of consciousness for a couple of seconds while he was playing solitaire on his computer. He felt like his head tilted forward. He did not think he went to sleep, although he had been taking some Antivert which seemed to make him drowsy. He has been on the Antivert for dizziness that has been occurring significantly over the past 2 weeks and he has had pronounced sinus congestion and nasal discharge by his report. He denies fever, has had minimal cough. He denies any chest pain. Troponin levels were elevated slightly on admission tonight had gone up to 0.4 from 0.2 from his hospitalization a week ago. He was in at that time and was evaluated for his heart and he underwent stress testing per Dr. Mcgrath, rotary cutter feeder. He had some areas of fixed defect and maybe some areas of possible ischemia. The patient had a panic attack after the stress test and was difficult to decipher but Dr. Mcgrath felt like his difficulties were noncardiac at that time. The patient did have some pain in his back that he says resolved 2 days after his discharge from the hospital. He was treated for musculoskeletal pain with Mobic and NSAIDs per Dr. Leigh and Dr. Mcgrath at that time. He denies any chest pains. The pain his back was unlike any pains he has had with his heart attacks in the past and he had a AR about a year ago by report from he and his . He is followed normally by Dr. Agudelo, his rotary cutter feeder in [place]. He had CABG in 2002 and a stent last year with the AR. MEDICATIONS: Prior to admission are aspirin 81 mg p.o. daily, Lipitor 40 mg p.o. at bedtime, metformin 1000 mg p.o. b.i.d. with meals, Entresto 49/50 one p.o. b.i.d., Coreg 12.5 mg p.o. b.i.d., Farxiga 1 p.o. daily, Cymbalta 60 mg p.o. daily, Levemir 50 mg p.o. b.i.d. before meals, Imdur 60 mg p.o. daily, KCl 10 mEq p.o. daily, Aldactone 25 mg p.o. q.a.m., Protonix 40 mg p.o. daily, Lyrica 50 mg p.o. b.i.d., Plavix 75 mg p.o. daily, he has been off of Antivert recently but was taking it up until a couple of days ago, Lasix 40 mg p.o. b.i.d., NovoLog 30 units subcu t.i.d. with meals. ALLERGIES: To narcotic. PAST MEDICAL HISTORY: 1. Coronary artery disease with history of stents and history of CABG 2002, history of AR several times in the past by his report with stents in the past last 1 a year ago. 2. Ischemic cardiomyopathy. 3. Ventricular defibrillator in place. 4. Gastritis/GERD. 5. History of TIA in the past. 6. IDDM. 7. Situational depression with anxiety. 8. Morbid obesity. 9. Obstructive sleep apnea on nightly CPAP. 10. Mild MR per echocardiogram done 1 week ago. 11. Peripheral neuropathy. 12. Osteoarthritis. PAST SURGICAL HISTORY: 1. CABG done in 2002 . 2. Numerous lipomas removed by Dr. Garrido primarily on the trunk, left arm and left leg with skin graft on the left leg noted . 3. AICD placement. FAMILY HISTORY: Notable for mother with heart disease, diabetes mellitus in his mother, liver cancer in his mother. Father had myelofibrosis. SOCIAL HISTORY: The patient lives in the local area. He is , lives with his , is a former smoker but has quit, does not drink alcohol, no drug use. ROS: As above. PHYSICAL EXAM: Temperature 97.3 degrees, pulse 84, respirations 17, blood pressure 144/56, O2 saturation room air 98%, weight 240, height 5 feet 10 inches tall. GENERAL: Moderately obese white male currently appears comfortable. No particular complaints except for the dizziness when he moves his head about. SKIN: Skin graft left lower leg noted. JORGE. EOMI. Sclerae clear. OP no redness, tongue in the midline, TMs clear. Nares not assessed. NECK: No LA, TMG, JVD, bruits. CV: RRR without murmur. Rare ectopy. LUNGS: CTA. BACK: NT. ABDOMEN: Soft, protuberant, NT, ND, no mass, no HSM. GENITOURINARY/RECTAL: Deferred. EXTREMITIES: No calf tenderness, cords or edema, somewhat cold lower extremities, decreased peripheral pulses. NEURO: Cranial nerves 2-12 are intact. No focal deficits. Chest x-ray tonight shows cardiomegaly, possible mild pulmonary venous congestion. EKG done in ER shows NSR with right bundle branch block, when compared to September 04 EKG T-wave inversion then is no longer present in the inferior leads, T-wave inversion no longer evident in the lateral leads as well. LAB DATA: Shows white count of 10.73, hemoglobin 14, hematocrit 44.9, MCV 80.6, platelets 329,000, neutrophils 85, lymphocytes 7.7, monocytes 5. Sodium 137, potassium 4.8, chloride 94, CO2 27, BUN 33, creatinine 1.2, glucose 212, calcium 10.3, total bilirubin 0.52, AST 12, ALT 21, alkaline phosphatase 84, total CK 39 and repeat showed 38, troponin on presentation 0.488, decreased 2 hours later to 0.451, notably on last visit these were 0.296 near discharge. ProBNP 1558, total protein 7.2, albumin 4.7. ASSESSMENT: 1. Syncope . 2. Dizziness. 3. Sinus discharge rule out sinusitis. 4. Elevated troponin levels with no chest pains currently and none for the past 5 days or so. Normal CKs noted. 5. Coronary artery disease. 6. Ischemic cardiomyopathy with baseline ejection fraction of 35% with compensated systolic congestive heart failure at this time chronic. 7. Automated implantable cardioverter defibrillator . 8. Insulin-dependent diabetes mellitus. 9. Depression with anxious features on Cymbalta. 10. Gastroesophageal reflux disease. 11. Morbid obesity. 12. Obstructive sleep apnea on CPAP. 13. Mild mitral regurgitation. 14. Peripheral neuropathy. 15. Osteoarthritis. PLAN: Will admit the patient to the hospital and obtain serial cardiac enzymes and ask Cardiology to see the patient again in consultation in the morning. Continue his aspirin, Plavix, Coreg, Lasix and Entresto and Aldactone currently. Continue his Levemir and Lipitor and Humalog and monitor serial Accu-Cheks, will check sinus series and will give him Claritin for dizziness, Augmentin for possible sinusitis, check bilateral carotid Doppler studies in the morning. cc: Vivek Hardin MD
[2019-09-14] MEDS ORDERED: ENTRESTO 49 MG-51 MG TABLET PO SCH (21:00)
[2019-09-14] MEDS ORDERED: LIPITOR PO SCH (21:00)
[2019-09-14] MEDS ORDERED: AUGMENTIN PO SCH (21:00)
[2019-09-14] MEDS ORDERED: INSULIN PEN NEEDLES ONE (22:39)
[2019-09-15] MEDS: HUMALOG SUBQ SCH (02:31)
[2019-09-15] MEDS ORDERED: HEPARIN IV PRN (03:23)
[2019-09-15] MEDS ORDERED: HEPARIN IV ONE ×2 (03:23→03:48)
[2019-09-15] MEDS ORDERED: LOPRESSOR PO ONE (03:24)
[2019-09-15] MEDS ORDERED: HEPARIN 25,000 UNITS/D5W 25,000 UNIT/250 ML IV.SOLN IV SCH (03:30)
--- NOTE | 2019-09-15 03:45 | EKG Report ---
Test Performed on : 09/14/2019 11:35:02 PM Test Reason : pos. vtach/torsades Blood Pressure : / mmHG Vent. Rate : 088 BPM Atrial Rate : 088 BPM P-R Int : 170 ms QRS Dur : 172 ms QT Int : 438 ms P-R-T Axes : 006 215 036 degrees QTc Int : 529 ms Sinus rhythm. with occasional premature ventricular complexes. Right bundle branch block Abnormal ECG When compared with ECG of 14-SEP-2019 11:50, (Unconfirmed) premature ventricular complexes. are now present Confirmed by Javan DOCKERY, Froilan ([id number]) on 09/15/2019 9:22:46 AM
[2019-09-15 04:28] LABS: PROTIME 13.3 Seconds (11.0-16.0); PTT 25.9 Seconds (22.3-41.8)
--- NOTE | 2019-09-15 04:53 | CONSULTATION ---
DATE OF CONSULTATION: 09/15/2019 IMPRESSION: 1. Recurrent episodes of polymorphic ventricular tachycardia which precipitated at least 2 implantable defibrillator discharges. Troponin mildly elevated and magnesium normal. Suspect underlying myocardial ischemia. 2. Extensive history of atherosclerotic coronary disease. a. Status post previous coronary bypass grafting 2002. b. Status multiple coronary angioplasty/stent procedure since his coronary bypass procedure the last being in January of 2018 of atherosclerotic coronary disease. c. Status post angioplasty/stenting of vein graft to diagonal in May of [address] elevation myocardial infarction. d. Status post angioplasty/stenting of obtuse marginal in July of 2015 with drug-eluting stent. e. Status post angioplasty/stenting of saphenous vein graft to diagonal May of 2017. f. Status post repeat angioplasty/stenting of severe in-stent stenosis in the vein graft to the diagonal in January of 2018. 3. Ischemic cardiomyopathy with left ventricular ejection fraction 35 to 40 percent. Patient is status post implantable defibrillator. 4. Hypertension. 5. Hyperlipidemia. 6. Obesity. 7. Diabetes mellitus type 2 requiring insulin and with associated peripheral neuropathy. 8. Obstructive sleep apnea. RECOMMENDATIONS: 1. Suspect underlying myocardial ischemia. Therefore, we will increase beta- blockade gently. 2. Intravenous heparin. 3. Favor re-evaluation with cardiac catheterization/coronary angiography and possible coronary angioplasty/stenting if needed. The rationale for this approach was discussed with the patient along with potential hazards. He is quite familiar with the procedure, and agreed to proceed. HISTORY: This 63-year-old white male with past history of atherosclerotic coronary disease as outlined above, ischemic cardiomyopathy, implantable defibrillator, hypertension, hyperlipidemia, type 2 diabetes mellitus requiring insulin, obesity, and obstructive sleep apnea was admitted to the emergency room yesterday after he presented with several spells. He relates that he was sitting at his computer early yesterday morning when he had a sensation of feeling somewhat flushed and lightheaded. This passed. He did not pass out. He had another episode of a similar nature and retrospectively he thinks his defibrillator might have discharged. He came to the emergency room for evaluation. Troponin was 0.4. He had not had any angina, and he has generally had angina whenever he has required coronary revascularization. He was admitted for further evaluation. While monitored on telemetry, he demonstrated several episodes of polymorphic ventricular tachycardia. On at least 2 of those episodes, he had a defibrillator discharge. Cardiology was consulted for this reason. He has not had any angina. He was hospitalized recently with dyspnea symptoms, and was felt to have congestive heart failure. Diuretic therapy was increased. During his stay, he had a Lexiscan myocardial perfusion study which was reported as showing a large severe perfusion defect that involved the anterolateral wall, and portions of the basal and mid inferior wall. The perfusion defect was reportedly largely fixed with only minimal sherry-infarct ischemia. Left ventricular ejection fraction was 37%. Left ventricle is dilated. PAST MEDICAL HISTORY: 1. Atherosclerotic coronary disease as outlined above. 2. Ischemic cardiomyopathy. 3. Status post implantable defibrillator. 4. Hypertension. 5. Hyperlipidemia. 6. Type 2 diabetes mellitus requiring insulin for control with associated peripheral neuropathy. 7. Gastroesophageal reflux disease. 8. Obstructive sleep apnea. 9. Obesity. 10. Osteoarthritis. 11. Depression/anxiety with some tendency for agoraphobia. 12. Previous transient ischemic attack in the past. PAST SURGICAL HISTORY: Coronary bypass grafting in 2002, implantable defibrillator placement, and removal of numerous lipomas. ALLERGIES: He is listed as having an allergy to "narcotic". MEDICATIONS PRIOR TO ADMISSION: As listed. SOCIAL HISTORY: He is retired from previous work for [employer] in [employer]. He is , and lives at home with his . He quit smoking many years ago, but previously smoked fairly heavily. He does not use alcohol. FAMILY HISTORY: Positive for coronary disease and diabetes mellitus. REVIEW OF SYSTEMS: Pulmonary: Noteworthy for chronic exertional shortness of breath. There has been no recent orthopnea or cough. Gastrointestinal: Noncontributory beyond history of present illness. Constitutional: Noncontributory beyond history of present illness. Remainder of review of systems negative/noncontributory beyond history present illness with 14 total systems reviewed. PHYSICAL EXAMINATION: General: This is an obese middle-aged white male in no distress on room air. Vital Signs: Blood pressure 151/86, heart rate 91 with ECG monitor showing sinus rhythm. Oxygen saturation 96% on room air. HEENT: Extraocular movements appear intact. Mucous membranes are moist. Neck: Supple without jugular venous distention. There are no carotid bruits. Chest: Clear to auscultation bilaterally. Cardiac: Exam reveals a regular rate and rhythm without appreciable murmur or gallop. Abdomen: Soft. Bowel sounds are normal. Extremities: Without edema. Neurologic: Reveals him to be alert and fully oriented. Speech is fluent. Moves all 4 extremities equally well. Skin: Warm and dry. Psychiatric: Reveals his mood to be appropriate. PERTINENT DATA: Twelve lead EKG obtained on admission demonstrates normal sinus rhythm and a right bundle branch block. Review of telemetry strips demonstrates sinus rhythms and episodes of polymorphic ventricular tachycardia two of which were interrupted by defibrillator discharge. LABORATORY DATA: Includes a white blood cell count of 10.73, hematocrit 44.9, hemoglobin 14.0 and platelet count 329,000. Sodium 137, potassium 4.8, chloride 94, carbon dioxide 27, BUN 33, and creatinine 1.2. Glucose 212. Initial CPK 39, followup CPK 37, and magnesium 2.3. Initial troponin 20.415, followup troponin 20.353. cc: MD Vivek Beach MD [facility]
[2019-09-15] MEDS ORDERED: LIDOCAINE SYRINGE IV ONE (05:53)
[2019-09-15] MEDS ORDERED: MAGNESIUM SULFATE 1 GM/D5W 1 GM/100 ML IVPB IV ONE (05:54)
[2019-09-15] MEDS ORDERED: LIDOCAINE 2 GM/D5W 2 GM/500 ML IV.SOLN IV SCH (06:00)
--- NOTE | 2019-09-15 06:57 | EKG Report ---
Test Performed on : 09/15/2019 06:45:29 AM Test Reason : CP Blood Pressure : / mmHG Vent. Rate : 082 BPM Atrial Rate : 082 BPM P-R Int : 162 ms QRS Dur : 168 ms QT Int : 424 ms P-R-T Axes : -10 250 050 degrees QTc Int : 495 ms Normal sinus rhythm. Right bundle branch block Abnormal ECG When compared with ECG of 14-SEP-2019 23:35, (Unconfirmed) premature ventricular complexes. are no longer present Confirmed by Javan DOCKERY, Froilan ([id number]) on 09/15/2019 9:23:11 AM
[2019-09-15 09:00] VITALS: BP 115/63
[2019-09-15] MEDS ORDERED: PROTONIX PO SCH (09:00)
[2019-09-15] MEDS ORDERED: KLOR-CON PO SCH (09:00)
[2019-09-15] MEDS ORDERED: ASPIRIN PO SCH (09:00)
[2019-09-15] MEDS ORDERED: COREG PO SCH (09:00)
[2019-09-15] MEDS ORDERED: CYMBALTA PO SCH (09:00)
[2019-09-15] MEDS ORDERED: IMDUR PO SCH (09:00)
[2019-09-15] MEDS ORDERED: ALDACTONE PO SCH (09:00)
--- NOTE | 2019-09-16 10:11 | DISCHARGE SUMMARY ---
ADMISSION DATE: 09/14/2019 DISCHARGE DATE: 09/15/2019 FINAL DISCHARGE DIAGNOSIS: 1. Ventricular tachycardia. 2. Non ST elevation myocardial infarction. 3. Vertigo. 4. History of coronary artery disease. 5. Diabetes mellitus. 6. Hypertension. 7. Hyperlipidemia. 8. Sleep apnea. 9. Morbid obesity. HISTORY OF PRESENT ILLNESS: Mr. Arroyo is a 63-year-old white gentleman, known case of advanced coronary artery disease. Poor compliance to followup and medication. The patient was admitted yesterday with dizziness vertigo questionable syncope. The patient was admitted to the floor. The patient had episode of polymorphic ventricular tachycardia. The patient was transferred to ICU. The patient also had implantable defibrillator. His troponin was elevated. The patient denied any fever or chills, mild cough. He did have some dizziness and tinnitus. Because of polymorphic ventricular tachycardia, cheese weigher came and evaluated the patient. His last stress test results reviewed. Considering his complex cardiac history and medical problems we decided to transfer patient to [facility] to his cheese weigher. I did discuss his presentation with the cardiology PA at [facility] who accepted the patient and we transferred patient to her cardiology [facility] via [facility] team. PHYSICAL EXAMINATION: When I evaluated the patient his vital sign were stable. He denied any chest pain. The patient was anxious neck is supple. No JVD. Lungs: Bibasilar crepitation. Heart: S1 and S2 heard. Abdomen: Soft, globular. Bowel sounds present. FRAMEWORK DEVELOPER: Alert, awake, able to move all 4 limbs. LAB DATA: PT/INR was 1. PTT 80.7. Hemoglobin 14, hematocrit 44.9. His magnesium 2.3. Initial troponin 0.415, repeat 1 was 0.353. ProBNP was 1558. Chest x-ray, cardiomegaly and suggestion of mild pulmonary venous congestion. Patient EKG noted. DISPOSITION: Overall transfer condition satisfactory, though critical. I did discuss the risk and benefit of transferred with the family. They understood and agreed. cc: MD Vivek Reyes MD
== END 2019-09-15 09:05 | disposition short-term general hospital (02) | DRG 309 ==
LOC: ED 11:22 → 3N 16:19 → ICU 09-15 02:15
PROVIDERS: ADMIT Family Medicine; ATTEND Internal Medicine